=== PATIENT | female | born 1940 | race Caucasian/White ===

== ENCOUNTER 2016-12-23 21:44 | Emergency (ER) | payer OTHER, BC ==
[~2016-12-23] VITALS: Ht 154.9 cm; Wt 61.2 kg
--- NOTE | ~2016-12-23 | EKG ---
[address] [place] [address] ELECTROCARDIOGRAM REPORT Name: HARJIT WEISS [id number] Admission: 12/23/16 Attend Phys: Discharge: 12/24/16 Date of : 40 Report #: [id number] THIS REPORT FOR: //name// [facility] ED Test Date: 2016-12-23 Test Time: 21:54:46 Pat Name: HARJIT WEISS Department: Room: Gender: F Application Support Analyst: JANE : 1940 Requested By: Jose Brown Order Number: [id number] MD: Bradford Landis Measurements Intervals [place] Rate: 85 P: 86 NM: 150 QRS: 11 QRSD: 94 T: 77 QT: 351 QTc: 418 Interpretive Statements Sinus rhythm Baseline wander in lead(s) V6 No previous ECG available for comparison Electronically Signed On 12-24-2016 9:31:49 CARD GRINDER by Bradford Landis [email or web address] <ELECTRONICALLY SIGNED> By: Bradford Landis MD, [facility] 12/24/16 [id number] Bradford Landis MD, FACC /EPI
[~2016-12-23 21:44] MED LIST: B12INJ PO; BACTROBAN CREAM30 G1 TOP; DONEPEZIL HCL5 MG PO; HYDROXYZINE HCL10 M1 PO; NAMENDA 5 MG TAB5 M1 PO; SEROQUEL 25 MG25 M1 PO
[2016-12-24 00:56] VITALS: BP 134/85
== END 2016-12-24 01:00 | disposition home or self-care (01) ==
LOC: ER 21:44
DX: S01.01XA Laceration without foreign body of scalp, initial encounter (principal); F03.90 Unspecified dementia, unspecified severity, without behavioral disturbance, psychotic disturbance, mood disturbance, and anxiety; I10 Essential (primary) hypertension; Z88.0 Allergy status to penicillin; W18.09XA Striking against other object with subsequent fall, initial encounter; Y93.89 Activity, other specified; Y92.89 Other specified places as the place of occurrence of the external cause; Y99.8 Other external cause status